=== PATIENT | female | born 1990 | race Caucasian/White ===

== ENCOUNTER → 2020-04-04 10:34 | Outpatient (CLI) | payer OTHER, SELFPAY ==
--- NOTE | 2020-04-04 10:34 | US_ITS ---
PROCEDURE: US OB TRANSVAGINAL CLINICAL INDICATION: for dates Evaluate early OB dates COMPARISON: No exams were available for comparison FINDINGS: An intrauterine gestational sac is present with a pole with a crown-rump length of 6.05cm correlating to gestational age of 12weeks 4days. heart tones are present with an FHR of 158bpm. Yolk sac is noted. The fetus is in breech presentation. The placenta is forming anterior. Unremarkable adnexa IMPRESSION: Live IUP at 12 weeks 4 days Estimated due date by Ultrasound is 10/13/2020 Dictated by: Anthony Tobin MD 04/04/2020 17:12 Electronically signed by Anthony Tobin MD in [place] 04/04/2020 17:12
== END ==
PROVIDERS: PCP Internal Medicine; Visit Provider Nurse Practitioner Obstetrics & Gynecology
DX: Z34.90 Encounter for supervision of normal pregnancy, unspecified, unspecified trimester (principal)
CPT/HCPCS: 76817

== ENCOUNTER 2020-04-05 14:37 | Emergency (ER) | payer OTHER, SELFPAY ==
[2020-04-05 14:39] VITALS: BP 116/73; PULSE 68; RESP 18; TEMP 36.8; O2SAT 98; BMI 21.4
--- NOTE | 2020-04-05 15:41 | US_ITS ---
PROCEDURE: US OB <= 14 WEEKS FETUS CLINICAL INDICATION: BLEEDING COMPARISON: US OB TRANSVAGINAL from 04/04/2020 FINDINGS: An intrauterine gestational sac is present with a pole with a crown-rump length of 6.64cm correlating to gestational age of 13weeks. heart tones are present with an FHR of 156bpm. Yolk sac is noted. There has been interval development a oval area of isoechoic good [place] along the posterior aspect of the uterus in the subchorionic region measuring 6.4 x 1.7 cm consistent with a subchorionic hemorrhage. The cervix is closed measuring 4 cm trans abdominal IMPRESSION: Live IUP at 13 weeks. heart and body motion noted Interval development of subchorionic hemorrhage Estimated due date by Ultrasound is 10/11/2020 Dictated by: Anthony Tobin MD 04/05/2020 17:40 Electronically signed by Anthony Tobin MD in [place] 04/05/2020 17:40
--- NOTE | 2020-04-05 15:48 | PC.NURSE ---
PT to US
--- NOTE | 2020-04-05 17:18 | PC.NURSE ---
Dr Pires speaking with Dr Forde at this time.
--- NOTE | 2020-04-05 17:36 | PC.NURSE ---
Lab at bedside
[2020-04-05 18:11] LABS: HCG Qualitative, Serum Positive (Negative)
[2020-04-05 18:15] LABS: Basophils % 0.5 % (0.1-2.0); Eosinophils # 0.1 K/mm3 (0.0-0.4); Eosinophils % 1.3 % (0.1-12.0); Hematocrit 42.9 % (37.0-47.0); Hemoglobin 14.7 g/dL (12.2-16.2); Lymphocytes # 2.6 K/mm3 (0.7-4.5); Lymphocytes % 31.2 % (10-50); Mean Corpuscular HGB Conc 34.3 g/dL (31.8-35.4); Mean Corpuscular Hemoglobin 33.7 pg (27.0-31.2); Mean Corpuscular Volume 98.1 fl (81-99); Mean Platelet Volume 7.2 fl (7.4-10.4); Monocytes # 0.2 K/mm3 (0.1-1.0); Monocytes % 2.1 % (1.7-9.3); Neutrophils # 5.4 K/mm3 (1.8-7.8); Neutrophils % 64.9 % (37.0-80.0); Platelet Count 264 K/mm3 (142-424); Red Blood Count 4.37 M/mm3 (4.20-5.40); Red Cell Distribution Width 12.8 % (11.5-17.5); White Blood Count 8.3 K/mm3 (4.8-10.8)
--- NOTE | 2020-04-05 18:45 | PC.NURSE ---
CALLED LAB TO CHECK ON STATUS OF RH STATUS AND THEY SAID IT SHOULD BE RESULTED WITHIN 5 MINUTES
--- NOTE | 2020-04-05 18:58 | HMH.EDPREG ---
ED Disposition Clinical Impression: Vaginal bleeding during Disposition: Home Health Service Condition on Discharge: Good Instructions: DI for Resolved Contractions Additional Instructions: Follow-up with your ENVIRONMENTAL EDUCATOR next week. Referrals: Marcelo Payton [Primary Care Provider] - - Critical Care Critical Care Time: No Attestation: On 04/05/20, the high probability of a clinically significant, sudden or life threatening deterioration of the following system(s) required my full and direct attention, intervention and personal management. The time I documented below is in addition to time spent performing reported procedures but includes the following listed in this critical care notation. Medical Decision Making - Medical Records Medical records reviewed: Yes: I reviewed the patient's medical records. - Rahul Inquiry Pt receiving controlled substance: No Vital Signs: 04/05/20 14:39 Temperature 98.3 F Temperature Source Oral Pulse Rate [Radial] 68 Respiratory Rate 18 Blood Pressure [Right Arm] 116/73 Blood Pressure Mean [Right Arm] 87 Blood Pressure Source [Right Arm] Automatic Cuff Blood Pressure Position [Right Arm] Sitting 02 Sat by Pulse Oximetry 98 Oxygen Delivery Method Room Air - Lab Data Lab results reviewed: Yes: I reviewed the patient's lab results. Lab Results 04/05/20 17:44: WBC 8.3, RBC 4.37, Hgb 14.7, Hct 42.9, MCV 98.1, MCH 33.7 H, MCHC 34.3, RDW 12.8, Plt Count 264, MPV 7.2 L, Neut % (Auto) 64.9, Lymph % (Auto) 31.2, [place] % (Auto) 2.1, Eos % (Auto) 1.3, Baso % (Auto) 0.5, Neut # (Auto) 5.4, Lymph # (Auto) 2.6, [place] # (Auto) 0.2, Eos # (Auto) 0.1, Baso # (Auto) 0.0 04/05/20 17:44: Serum HCG, Qual Positive 04/05/20 17:44: Blood Type O Positive Result diagrams: 04/05/20 17:44 - Radiology Data #1 Image(s): Chest Preliminary Findings: Normal/NAD - US Data US Images: Abdomen (Patient has a chorionic hemorrhage she has had this in previous pregnancies.) Medical Decision Narrative: Patient is Rh+ I did talk to Dr. Forde about this patient she said for her if her Rh status came back negative give her RhoGam however she came back Rh+ she will follow-up with her ENVIRONMENTAL EDUCATOR next week. HPI - General Chief complaint: OB/Uterine Contractions Stated complaint: 13 weeks bleeding Time Seen by Provider: 04/05/20 18:50 Mode of Arrival: Ambulatory Source of Information: Patient Limitations: No Limitations Description of Symptoms (Recalled from ER Triage Doc. by RN): States she is 12 weeks 5 days and had an ultrasound yesterday and everything was fine. Then stated that she was at work had some cramping and went home laid down and started to bleed. States it is bright red. - History of Present Illness HPI Narrative: 29-year-old female presents the ED with some vaginal bleeding during her 12th week of . Patient presently is a G6, P5 at 12 weeks 3 days today. Patient states she had an ultrasound done earlier this week and it was normal however today she started having some bleeding. Otherwise patient denies any other symptoms. : yes Date of Last Menstrual Period: na - Related Data Home Medications Medication Instructions Recorded Confirmed buprenorphine HCl 8 mg sublingual 8 mg SUBLINGUAL tab 03/28/20 03/28/20 tablet Previous Rx's Medication Instructions Recorded nitrofurantoin macrocrystal 100 mg 100 mg PO BID 5 Days #10 cap 03/28/20 capsule vitamin-ferrous fumarate 1 tab PO DAILY #30 tab 03/28/20 28 mg iron-folic acid 800 mcg tablet valacyclovir 1 gram tablet 1,000 mg PO DAILY #30 tab 03/28/20 Allergies Allergy/AdvReac Type Severity Reaction Status Date / Time codeine Allergy Verified 03/28/20 09:12 [facility] History - Hepatitis A Screen Drug use history?: No High risk sexual behaviors?: No History of sexually transmitted infection?: No Currently employed?: No Childcare worker?: N
[2020-04-05 19:17] VITALS: BP 116/73; PULSE 68; RESP 18; TEMP 36.8; O2SAT 98
== END 2020-04-05 19:19 | disposition home health service (06) ==
PROVIDERS: Emergency Provider Family Medicine; PCP Internal Medicine
DX: O20.9 Hemorrhage in early pregnancy, unspecified (principal); Z3A.12 12 weeks gestation of pregnancy; Z88.5 Allergy status to narcotic agent; F17.210 Nicotine dependence, cigarettes, uncomplicated
CPT/HCPCS: 76801; 84703; 85025; 86900; 86901; 99282; 99283

== ENCOUNTER → 2020-04-05 18:43 | Outpatient (CLI) | payer OTHER, SELFPAY ==
[2020-04-07 06:21] LABS: HIV Screen 4th Generation wRfx Non Reactive (Non Reactive); Hepatitis B Surface Antigen Negative (Negative); Hepatitis C Antibody <0.1 s/co ratio (0.0-0.9)
[2020-04-07 09:38] LABS: HSV 2 IgG, Type Spec <0.91 index (0.00-0.90)
[2020-04-07 10:46] LABS: Rapid Plasma Reagin Ab Titer Non Reactive (NonRea<1:1)
== END ==
PROVIDERS: Visit Provider Nurse Practitioner Obstetrics & Gynecology
DX: Z34.90 Encounter for supervision of normal pregnancy, unspecified, unspecified trimester (principal)
CPT/HCPCS: 86592; 86695; 86703; 86762; 86790; 87340; 87380; G0432

== ENCOUNTER → 2020-04-24 16:10 | Outpatient (CLI) | payer OTHER, SELFPAY ==
[2020-04-24 18:24] LABS: Amphetamine/Metha Screen,Urine Negative ng/ml (<1000); Barbiturates Screen,Urine Negative ng/ml (<200)
[2020-04-24 18:25] LABS: Benzodiazepines Screen,Urine Negative ng/ml (<200); Cannabinoid Screen,Urine Positive ng/ml (<50)
[2020-04-24 18:26] LABS: Cocaine Screen,Urine Negative ng/ml (<300)
[2020-04-24 18:27] LABS: Methadone Screen,Urine Negative ng/ml (<300); Opiate Screen,Urine Negative ng/ml (<300)
[2020-04-24 18:28] LABS: Phencyclidine Screen,Urine Negative ng/ml (<25)
== END ==
PROVIDERS: Visit Provider Obstetrics & Gynecology
DX: Z34.90 Encounter for supervision of normal pregnancy, unspecified, unspecified trimester (principal)
CPT/HCPCS: 80305

== ENCOUNTER → 2020-04-25 12:55 | Outpatient (CLI) | payer OTHER, SELFPAY ==
--- NOTE | 2020-04-25 12:58 | US_ITS ---
PROCEDURE: US OB TRANSVAGINAL CLINICAL INDICATION: US US OB T/V-F/U on subchronic hemorrhage COMPARISON: US OB <= 14 WEEKS FETUS from 04/05/2020 FINDINGS: There is a single live intrauterine gestation present. Average ultrasound age is 16 weeks 1 day. heart tones are present 142 beats per minute. The placenta is forming anteriorly and at this time appears to covers the cervical os. Follow-up is suggested. Decreased echogenicity is present in the subchorionic region posteriorly consistent with residual sequela from subchorionic bleed measuring approximately 7 x 0.9 cm and is thinner than when compared to the previous exam. Echogenicity is also somewhat less. BPD 16 weeks 3 days, OFD 15 weeks 5 days, HC 15 weeks 5 days, AC 16 weeks 1 day, FL 16 weeks 0 days IMPRESSION: Live IUP at 16 weeks 1 day. Subchorionic bleed once again noted and may be somewhat less in volume. Placenta previa noted at this time. Follow-up recommended Estimated due date by Ultrasound is 10/09/2020 Dictated by: Anthony Tobin MD 04/25/2020 17:06 Electronically signed by Anthony Tobin MD in [place] 04/25/2020 17:06
== END ==
PROVIDERS: PCP Internal Medicine; Visit Provider Obstetrics & Gynecology
DX: O41.8X20 Other specified disorders of amniotic fluid and membranes, second trimester, not applicable or unspecified (principal); O46.8X2 Other antepartum hemorrhage, second trimester
CPT/HCPCS: 76817

== ENCOUNTER → 2020-05-15 16:31 | Outpatient (CLI) | payer OTHER, SELFPAY ==
[2020-05-15 17:06] LABS: Barbiturates Screen,Urine Negative ng/ml (<200); Benzodiazepines Screen,Urine Negative ng/ml (<200)
[2020-05-15 17:07] LABS: Amphetamine/Metha Screen,Urine Negative ng/ml (<1000)
[2020-05-15 17:08] LABS: Cannabinoid Screen,Urine Positive ng/ml (<50); Methadone Screen,Urine Negative ng/ml (<300)
[2020-05-15 17:09] LABS: Cocaine Screen,Urine Negative ng/ml (<300)
[2020-05-15 17:10] LABS: Opiate Screen,Urine Negative ng/ml (<300); Phencyclidine Screen,Urine Negative ng/ml (<25)
== END ==
PROVIDERS: Visit Provider Obstetrics & Gynecology
DX: Z34.90 Encounter for supervision of normal pregnancy, unspecified, unspecified trimester (principal)
CPT/HCPCS: 80305

== ENCOUNTER → 2020-05-29 13:03 | Outpatient (CLI) | payer OTHER, SELFPAY ==
--- NOTE | 2020-05-29 13:04 | US_ITS ---
PROCEDURE: US OB /MATERNAL DETAIL CLINICAL INDICATION: US OB Complete The COMPARISON: US US OB TRANSVAGINAL from 04/25/2020 FINDINGS: There is a single live fetus present which is in breech presentation. heart body motion noted. Cervix is closed measuring 4.7 cm transabdominal. Placenta is anterior. Low level echoes are once again noted posteriorly in the subchorionic region suggesting some residual subchorionic hemorrhage which appears smaller compared to the previous study. This measures approximately 4 cm in length and 0.9 cm in with. Complete survey performed and was unremarkable on the submitted images as in PACS. No discrete anomalies identified on survey imaging by technologist. Active fetus. Three-vessel cord with satisfactory umbilical cord insertion. 4- chamber heart noted. Survey of brain & ventricles Unremarkable. Face and neck survey unremarkable. Diaphragm and chest views unremarkable. Abdomen: Both kidneys noted and unremarkable. Stomach noted and satisfactory. Spine: Survey of the spine satisfactory with no anomalies identified nor imaged. Both arms and legs noted. Amniotic Fluid: Adequate. Maternal adnexa: No significant findings. Measurements: Average ultrasound age 20weeks 3days. Gestational Age 20weeks 3days Estimated due date by ultrasound age 1210/13/2020. Estimated weight 351g BPD = 20weeks 4days OFD = 20weeks 5days HC = 20weeks AC = 20weeks 3days FL = 20weeks 4days Growth Percentile= 43Percent% Heart Rate = 139bpm Cerebellum = 20weeks 3days Humerus = 20weeks 5days HC/AC is 1.15 CI is 0.78 FL/BPD is 0.7 FL/AC is 0.22 IMPRESSION: Single live fetus in breech presentation with an average ultrasound age of 20 weeks and 3 days as described above. No obvious anomalies. There remains some minimal subchorionic hemorrhage Dictated b Anthony Tobin MD 05/30/2020 12:10 Anthony Tobin MD in [place] 05/30/2020 12:10
== END ==
PROVIDERS: PCP Internal Medicine; Visit Provider Obstetrics & Gynecology
DX: Z36.0 Encounter for antenatal screening for chromosomal anomalies (principal)
CPT/HCPCS: 76811

== ENCOUNTER → 2020-07-10 08:59 | Outpatient (CLI) | payer OTHER, SELFPAY ==
[2020-07-10 09:27] LABS: Glucose,Fasting 97 mg/dl (74-100)
[2020-07-10 11:44] LABS: Glucose 1 Hour 129 mg/dL (74-100)
== END ==
PROVIDERS: Obstetrics & Gynecology; Visit Provider Nurse Practitioner Obstetrics & Gynecology
DX: Z34.90 Encounter for supervision of normal pregnancy, unspecified, unspecified trimester (principal)
CPT/HCPCS: 36415; 82951; 86850

== ENCOUNTER → 2020-08-21 14:06 | Outpatient (CLI) | payer OTHER, SELFPAY ==
--- NOTE | 2020-08-21 14:06 | US_ITS ---
PROCEDURE: US OB FOLLOW UP CLINICAL INDICATION: US OB- Growth ANDRE- SGA COMPARISON: US US OB /MATERNAL DETAIL from 05/29/2020 FINDINGS: There is a single live fetus present which is in cephalic presentation. heart and body motion noted. Heart rate is 132 beats per minute. The cervix is closed and measures 4 cm. The placenta is anterior in implantation and grade 1. Amniotic fluid index is normal at 16 cm. Average ultrasound age is 32 weeks 4 days. BPD 32 weeks 2 days, OFD 32 weeks 2 days, HC 32 weeks 1 day, AC 33 weeks 1 day, FL 32 weeks 2 days. All parameters correlate. Estimated due date by ultrasound is 10/12/2020. Estimated weight is 2031 g which is 48th percentile. IMPRESSION: Live IUP at 32 weeks 4 days as described above. Dictated by: Anthony Tobin MD 08/22/2020 13:28 Anthony Tobin MD in [place] 08/22/2020 13:28
== END ==
PROVIDERS: PCP Internal Medicine; Visit Provider Obstetrics & Gynecology
DX: O36.5990 Maternal care for other known or suspected poor fetal growth, unspecified trimester, not applicable or unspecified (principal)
CPT/HCPCS: 76816

== ENCOUNTER 2020-09-03 16:36 | Emergency (ER) | payer OTHER, SELFPAY ==
[2020-09-03 17:06] VITALS: BP 113/76; PULSE 69; RESP 19; TEMP 36.9; O2SAT 98; BMI 22.1
[2020-09-03 17:12] LABS: UTC Influenza A Antigen Negative (Negative); UTC Influenza B Antigen Negative (Negative); UTC Strep Screen (Rapid) Negative (Negative)
--- NOTE | 2020-09-03 17:19 | HMH.EDUTC ---
[facility] Disposition Clinical Impression: Viral syndrome Qualifiers: Weeks of gestation: 34 weeks Qualified Code(s): Z3A.34 - 34 weeks gestation of Disposition: Home, Self-Care Condition on Discharge: Good Instructions: Preventing the Spread of Coronavirus Discharge Instructions Additional Instructions: Drink plenty of fluids. Take tylenol for pain or fever. Follow up with your regular doctor. Follow up with your ob doctor. Call her and let her know that you are sick. GO TO THE ER FOR ANY WORSENING SYMPTOMS Referrals: Marcelo Payton [Primary Care Provider] - Forms: Work/School Release Time of Disposition: 17:25 Medical Decision Making - Medical Records Medical records reviewed: No: I reviewed the patient's medical records. - Rahul Inquiry Pt receiving controlled substance: No Vital Signs: 09/03/20 17:06 09/03/20 17:28 Temperature 98.4 F 98.4 F Temperature Source Oral Pulse Rate 69 Pulse Rate [Right Brachial] 69 Respiratory Rate 19 19 Blood Pressure 113/76 Blood Pressure [Right Arm] 113/76 Blood Pressure Mean [Right Arm] 88 Blood Pressure Source [Right Arm] Automatic Cuff Blood Pressure Position [Right Arm] Sitting 02 Sat by Pulse Oximetry 98 Oxygen Delivery Method Room Air - Lab Data Lab Results 09/03/20 16:47: Influenza Type A Ag Negative, Influenza Type B Ag Negative 09/03/20 16:47: Strep Scn Rapid Clinic Negative Orders (Tests/Meds): ORDERS Category Date Time Status Strep Screen Confirmation Stat Micro 09/03/20 16:47 Received [facility] [place] HPI - General Stated complaint: covid test sore throat cough sob headache weakness Time Seen by Provider: 09/03/20 17:19 Mode of Arrival: Ambulatory Source of Information: Patient Limitations: No Limitations Description of Symptoms (Recalled from Triage Doc. by RN): PATIENT C/O COUGH, SORE THROAT, HEADACHE, AND SINUS DRAINAGE SINCE YESTERDAY HEENT Symptoms (Recalled from RN notes): Yes Resp Symptoms (Recalled from RN notes): Yes Skin Symptoms (Recalled from RN notes): No MS Symptoms (Recalled from RN notes): No Functional Status (Recalled from RN notes): WNL - History of Present Illness Provider Complaint: She c/o body aches and feeling bad since yesterday. 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 She is 34 weeks . - Related Data Home Medications Medication Instructions Recorded Confirmed buprenorphine HCl 8 mg sublingual 10 mg SUBLINGUAL tab 06/12/20 tablet Previous Rx's Medication Instructions Recorded vitamin-ferrous fumarate 1 tab PO DAILY #30 tab 03/28/20 28 mg iron-folic acid 800 mcg tablet valacyclovir 1 gram tablet 1,000 mg PO DAILY #30 tab 03/28/20 promethazine 12.5 mg tablet 12.5 mg PO Q6H PRN #30 tab 04/24/20 ondansetron 4 mg disintegrating 4 mg PO Q6H PRN #30 tab 07/02/20 tablet Allergies Allergy/AdvReac Type Severity Reaction Status Date / Time No Known Allergies Allergy Verified 08/28/20 13:57 - Worker's Comp Is this a Worker's Comp case?: No [facility] History - Hepatitis A Screen Drug use history?: No High risk sexual behaviors?: No History of sexually transmitted infection?: No Currently employed?: No Childcare worker?: No Do you have indoor plumbing?: Yes Do you have electricity?: Yes Attestation statement:: This patient has been screened for Hepatitis A risk factors. I have reviewed the patient's past medical history: Yes Other Surgeries: Yes: Dilation and Curettage Amputation: No Fractures: No - Social History Smoking Status: Current every day smoker Tobacco Type: cigarettes # Packs/Day (cigarettes): 1 Alcohol Intake: never Substance Use Type: former substance user, marijuana, painkillers, prescription drug Occupational Status: other Housing: house Family Hx:: No significant family history [employer] history: Spontaneous ROS Obtained: Yes All
[2020-09-03 17:28] VITALS: BP 113/76; PULSE 69; RESP 19; TEMP 36.9; O2SAT 98
--- NOTE | 2020-09-05 11:29 | SW/DCPLANNER ---
RECEIVED A CALL FROM THIS PATIENT THIS MORNING STATING SHE IS GOING TO DELIVER HERE AT [facility] AND HER DUE DATE IS OCT 13 AND SHE IS GIVING THE UP FOR ADOPTION...SHE IS A PATIENT OF DR LÓPEZ'S AND WANTED TO KNOW WHAT SHE NEEDS TO HAVE IN PLACE TO BE PREPARED... I HAVE GIVEN HER NUMBER TO ROMAINE YAN, SATURATOR OPERATOR OF THE UNIT AND SHE IS GOING TO CALL HER AND EXPLAIN EVERYTHING TO HER... WILL ASSIST WHEN SHE COMES IN FOR DELIVERY FOR ANYTHING SERVICES SHE MAY NEED POST DELIVERY..
== END 2020-09-03 17:30 | disposition home or self-care (01) ==
PROVIDERS: Emergency Provider Nurse Practitioner Family; PCP Internal Medicine
DX: Z20.828 Contact with and (suspected) exposure to other viral communicable diseases (principal); B34.9 Viral infection, unspecified; Z3A.34 34 weeks gestation of pregnancy
CPT/HCPCS: 87804; 87880; 99202; U0003

== ENCOUNTER 2020-09-12 13:35 | Inpatient (IN) | payer OTHER, SELFPAY ==
[2020-09-12 12:13] VITALS: BMI 22.5
[2020-09-12 12:22] VITALS: BP 131/63; PULSE 74; RESP 20; TEMP 36.9; O2SAT 98; BMI 22.5
[2020-09-12 12:45] LABS: Microscopic, Urine URINE MICROSCOPIC (MICROSCOPIC)
[2020-09-12 12:47] LABS: Appearance,Urine CLEAR (Clear); Bilirubin,Urine Negative (Negative); Blood, Urine 2+ (Negative); Color,Urine YELLOW (Yellow); Glucose,Urine (UA) Negative (Negative); Ketones,Urine Negative (Negative); Leukocyte Esterase,Urine 2+ (Negative); Nitrate,Urine Negative (Negative); PH,Urine 6.5 (5.0-8.5); Protein,Urine Negative (Negative); Urobilinogen,Urine 0.2 EU/dl (0.2)
[2020-09-12 12:55] LABS: Fetal Membrane Rupture (Rapid) Negative (Negative)
[2020-09-12 12:58] LABS: Amphetamine/Metha Screen,Urine Negative ng/ml (<1000)
[2020-09-12 12:59] LABS: Barbiturates Screen,Urine Negative ng/ml (<200); Benzodiazepines Screen,Urine Negative ng/ml (<200)
[2020-09-12 13:00] LABS: Cannabinoid Screen,Urine Negative ng/ml (<50)
[2020-09-12 13:01] LABS: Cocaine Screen,Urine Negative ng/ml (<300)
[2020-09-12 13:02] LABS: Opiate Screen,Urine Negative ng/ml (<300); Phencyclidine Screen,Urine Negative ng/ml (<25)
[2020-09-12 13:05] LABS: Methadone Screen,Urine Negative ng/ml (<300)
[2020-09-12 13:32] LABS: Bacteria,Urine Trace /lpf
--- NOTE | 2020-09-12 14:28 | HMH.LABNOT ---
Labor Note - Subjective: Date: 09/12/20 Time: 14:28 Comment:: @ 35 12/23 presented with regular contractions Cervix 5-6cm on exam and admitted for active labor Preganancy complicated by tobacco smoking, chronic subutex maintenance and THC abuse Planned adoption, with recent changes to adoptive parents status reassuring at admission - Objective: NST:: Reactive Contractions:: every 2-3 minutes Cervical Dilation:: 5-6 Effacement:: 80% Station: -1 Membranes: intact - Fetus: Monitoring?: Yes monitoring type:: External Comment:: baseline 130's, + accels - Assessment: Patient Problems: All Active Problems Active labor (Acute) 35 to 36 weeks gestation of (Acute) Viral syndrome (Acute) Small for dates fetus (Acute) Urinary tract infection affecting (Acute) Positive urine drug screen (Acute) Vaginal bleeding during (Acute) Tobacco smoking complicating (Acute) Subchorionic hemorrhage (Acute) complicated by subutex maintenance, antepartum (Acute) with adoption planned (Acute) History of herpes genitalis (Acute) tubal ligation planned (Acute) (Acute) - Plan: Anesthesia for epidural?: Yes Comment:: Admitted to [facility] Started on IV ampicillin for GBS prophylaxis Labs currently being drawn Epidural after labs resulted Peds for delivery
[2020-09-12 14:39] LABS: Basophils % 0.2 % (0.1-2.0); Eosinophils # 0.1 K/mm3 (0.0-0.4); Eosinophils % 0.5 % (0.1-12.0); Hematocrit 44.1 % (37.0-47.0); Hemoglobin 14.5 g/dL (12.2-16.2); Lymphocytes # 2.5 K/mm3 (0.7-4.5); Lymphocytes % 15.1 % (10-50); Mean Corpuscular HGB Conc 32.9 g/dL (31.8-35.4); Mean Corpuscular Hemoglobin 32.7 pg (27.0-31.2); Mean Corpuscular Volume 99.4 fl (81-99); Mean Platelet Volume 7.7 fl (7.4-10.4); Monocytes # 0.5 K/mm3 (0.1-1.0); Monocytes % 3.3 % (1.7-9.3); Neutrophils # 13.2 K/mm3 (1.8-7.8); Neutrophils % 80.8 % (37.0-80.0); Platelet Count 271 K/mm3 (142-424); Red Blood Count 4.44 M/mm3 (4.20-5.40); Red Cell Distribution Width 13.9 % (11.5-17.5); White Blood Count 16.3 K/mm3 (4.8-10.8)
[2020-09-12 14:42] LABS: MANUAL DIFFERENTIAL MANUAL DIFFERENTIAL (MANUAL DIFF)
--- NOTE | 2020-09-12 14:57 | HMH.ANESCL ---
[facility] Anesthesia Checklist - Patient Identification Patient Identification: Arm Band - Structural Data Admitted From: Inpatient Planned Operative Procedure/s: labor epidural Consent for Planned Operative Procedure(s) Verified: Yes Verified Documents: Surgical Consent, History and Physical - NPO Status Verified Time NPO: 00:00 - Additional verifications Anesthesia Reactions: No - Airway Assessment C-Spine Mobility Assessed: Yes TMJ Mobility Assessed: Yes Dentition: Good Dentition - Neurological Assessment Level of Consciousness: Awake, Alert - Anesthesia Plan Anesthesia Risk discussed: Yes Anesthesia Plan: Verified ASA Class: II Anesthesia Type: Epidural [facility] History I have reviewed the patient's past medical history: Yes *Have you ever received a pneumonia vaccine?: No *Have you received a flu vaccine this season?: No Anesthesia experience/problems:: nac Other Surgeries: Yes: Dilation and Curettage. No: Amputation: No Fractures: No - *Social History Smoking Status: Current every day smoker Tobacco Type: cigarettes # Packs/Day (cigarettes): 1 Alcohol Intake: never Substance Use Type: former substance user, marijuana, painkillers, prescription drug *Occupational Status:: employed Housing: house *Travel in the last 8 weeks: None Family Hx:: No significant family history [employer] history: Spontaneous Para: 5
[2020-09-12 15:25] LABS: Coronavirus 19 IgG Antibody Negative (Negative); Coronavirus 19 IgM Antibody Negative (Negative)
--- NOTE | 2020-09-12 15:46 | HMH.DN ---
- Delivery Note Delivery Date:: 09/12/20 Delivery Time:: 15:28 Anesthesia Type: Epidural Was labor medically induced?: No Gestational age (weeks): 35 Infant delivered prior to 39 weeks?: Yes Justification for early elective delivery:: Active Labor Gender: Male at 1 minute: 9 at 5 minutes: 9 Delivery Procedure:: Spontaneous vaginal delivery of liveborn male over intact perineum. Delivery uncomplicated No nuchal cord or shoulder dystocia with delivery placed in ANNITA with mother immediately after umbilical cord clamped/cut, with standard nursing assessment performed Infant Apgars: Placenta manually expressed after cord avulsion; uterine exploration performed to ensure complete removal of placenta Vulva, vagina, and cervix inspected; no lacerations present EBL: 300 cc All sponge/needle/instrument counts correct at conclusion of procedure Disposition: Mom/baby stable to recovery in [facility] Placental Delivery Description: Manual Removal
[2020-09-12 16:44] LABS: Lymphocytes % 18 % (10-50); Monocytes % 3 % (2-9); Neutrophils % 79 % (42-76); Platelet Estimate Normal; RBC Morphology Normal; Total Cells Counted 100
[2020-09-13 05:49] LABS: Hematocrit 40.2 % (37.0-47.0); Hemoglobin 13.1 g/dL (12.2-16.2)
--- NOTE | 2020-09-13 11:49 | HMH.DCSUM ---
General - General Admission date:: 09/12/20 Discharge date: 09/13/20 Hospital Course Hospital Course: Patient admitted at 35 3/7 with active labor Normal vaginal delivery course uncomplicated Tolerating regular diet, ambulating and voiding without difficulty rooming in with adoptive parents and she desires discharge home today No signs of depression Objective Vital signs: Temp Pulse Resp BP Pulse Ox 98.4 F 74 20 131/63 98 09/12/20 12:22 09/12/20 12:22 09/12/20 12:22 09/12/20 12:22 09/12/20 12:22 Narrative: CONSTITUTIONAL: no acute distress HEENT: mucous membranes moist PULMONARY: breathing unlabored without audible wheezes CV: no tachycardia or visible JVD; normal LE peripheral pulses ABD: soft, NT/ND, no guarding : fundus firm at/below umbilicus SKIN: no visible rash or lesions EXT: 1+ edema LEs NEURO: alert/oriented, no altered mental status PSYCH: appropriate mood and demeanor without visible anxiety/depression Results Labs on day of discharge: Labs from last 24 hours 09/13/20 09/12/20 09/12/20 05:23 14:35 14:35 WBC RBC Hgb 13.1 Hct 40.2 MCV MCH MCHC RDW Plt Count MPV Neut % (Auto) Lymph % (Auto) [place] % (Auto) Eos % (Auto) Baso % (Auto) Neut # (Auto) Lymph # (Auto) [place] # (Auto) Eos # (Auto) Baso # (Auto) Total Counted Neutrophils % (Manual) Lymphocytes % (Manual) Monocytes % (Manual) Platelet Estimate RBC Morphology Urine Color Urine Appearance Urine pH Ur Specific [place] Urine Protein Urine Glucose (UA) Urine Ketones Urine Blood Urine Nitrate Urine Bilirubin Urine Urobilinogen Ur Leukocyte Esterase Urine RBC Urine WBC Ur Squamous Epith Cells Urine Bacteria Membrane Rupture Urine Opiates Screen Urine Methadone Screen Ur Barbituates Screen Ur Phencyclidine Scrn Ur Amphetamines Screen U Benzodiazepines Scrn Urine Cocaine Screen U Marijuana (THC) Screen SARS-CoV-2 IgG Ab (Rapid) Negative SARS-CoV-2 IgM Ab (Rapid) Negative Blood Type O Positive Antibody Screen Negative 09/12/20 09/12/20 09/12/20 14:35 12:30 12:00 WBC 16.3 H RBC 4.44 Hgb 14.5 Hct 44.1 MCV 99.4 H MCH 32.7 H MCHC 32.9 RDW 13.9 Plt Count 271 MPV 7.7 Neut % (Auto) 80.8 H Lymph % (Auto) 15.1 [place] % (Auto) 3.3 Eos % (Auto) 0.5 Baso % (Auto) 0.2 Neut # (Auto) 13.2 H Lymph # (Auto) 2.5 [place] # (Auto) 0.5 Eos # (Auto) 0.1 Baso # (Auto) 0.0 Total Counted 100 Neutrophils % (Manual) 79 H Lymphocytes % (Manual) 18 Monocytes % (Manual) 3 Platelet Estimate Normal RBC Morphology Normal Urine Color Urine Appearance Urine pH Ur Specific [place] Urine Protein Urine Glucose (UA) Urine Ketones Urine Blood Urine Nitrate Urine Bilirubin Urine Urobilinogen Ur Leukocyte Esterase Urine RBC Urine WBC Ur Squamous Epith Cells Urine Bacteria Membrane Rupture Negative Urine Opiates Screen Negative Urine Methadone Screen Negative Ur Barbituates Screen Negative Ur Phencyclidine Scrn Negative Ur Amphetamines Screen Negative U Benzodiazepines Scrn Negative Urine Cocaine Screen Negative U Marijuana (THC) Screen Negative SARS-CoV-2 IgG Ab (Rapid) SARS-CoV-2 IgM Ab (Rapid) Blood Type Antibody Screen 09/12/20 12:00 WBC RBC Hgb Hct MCV MCH MCHC RDW Plt Count MPV Neut % (Auto) Lymph % (Auto) [place] % (Auto) Eos % (Auto) Baso % (Auto) Neut # (Auto) Lymph # (Auto) [place] # (Auto) Eos # (Auto) Baso # (Auto) Total Counted Neutrophils % (Manual) Lymphocytes % (Manual) Monocytes % (Manual) Platelet Estimate RBC Morphology Urine Color Yellow Urine Appearanc
[2020-09-17 16:22] LABS: Buprenorphine, Urine Positive (Cutoff=10)
== END 2020-09-13 13:10 | disposition home or self-care (01) | DRG 807 ==
LOC: OBOUT 13:35 → OB 13:35
PROVIDERS: Admitting Provider Obstetrics & Gynecology; PCP Internal Medicine; Visit Provider Obstetrics & Gynecology
DX: O60.14X0 Preterm labor third trimester with preterm delivery third trimester, not applicable or unspecified (principal); Z37.0 Single live birth; Z3A.35 35 weeks gestation of pregnancy; F11.21 Opioid dependence, in remission; O99.320 Drug use complicating pregnancy, unspecified trimester
CPT/HCPCS: 59409; 59025; 80305; 80307; 81001; 84112; 85007; 85014; 85018; 85025; 86328; 86850; 87086; J0290; J0571; J1050